=== PATIENT | female | born 1985 | race Caucasian/White ===

== ENCOUNTER 2017-05-21 07:53 | Emergency (ER) | payer OTHER ==
[~2017-05-21] VITALS: Ht 154.9 cm; Wt 70.3 kg
[~2017-05-21 07:53] MED LIST: CYMBALTA30 MG; IBUPROFEN; METFORMIN HCL500 MG PO; PANTOPRAZOLE SO40 MG PO; PROZAC
[2017-05-21 09:31] LABS: BILIRUBIN,URINE NEGATIVE (NEGATIVE); CLARITY,URINE CLOUDY (CLEAR); COLOR,URINE YELLOW (YELLOW); KETONES,URINE NEGATIVE (NEGATIVE); LEUKOCYTE ESTERASE ,URINE TRACE (NEGATIVE); NITRITE,URINE NEGATIVE (NEGATIVE); PROTEIN,URINE DIPSTICK NEGATIVE (NEGATIVE); URINE UROBILINOGEN 0.2 mg/dL (0.2 - 1)
[2017-05-21 09:35] LABS: PREGNANCY TEST, URINE NEGATIVE (NEGATIVE)
[2017-05-21 09:59] LABS: BACTERIA,URINE MANY /HPF; EPITHELIAL CELLS,URINE MODERATE /LPF
[2017-05-21] MEDS ORDERED: SEROQUEL25 MG PO (11:27)
[2017-05-21] MEDS ORDERED: OXYCODONE HCL20 M1 PO (11:27)
--- NOTE | 2017-05-21 12:02 | Diagnostic Imaging Report ---
PROCEDURE: CT ABDOMEN AND PELVIS WITHOUT CONTRAST COMPARISON:None. INDICATIONS:Bilateral flank pain. TECHNIQUE: Stone protocol Volumetric CT abdomen and pelvis. No intravenous or enteric contrast. Multiplanar reformatted images. DLP: 308.59 FINDINGS: Clear lung bases. No pleural effusions. Normal heart size. Liver: Normal Gallbladder: Normal. No bile duct dilation. Pancreas: Normal Spleen: Normal Adrenal glands: Normal Urinary bladder: Normal Uterus and adnexa: 5.2 cm simple right adnexal cyst, almost certainly benign in a patient of this age. Bilateral tubal ligation. Right kidney: 1 mm nonobstructing right inferior pole stone (image 66, series 401). Otherwise, normal bilaterally. Normal ureters. Bowel: Normal caliber. Moderate-sized sliding-type hiatal hernia. Inconspicuous appendix. Peritoneum: Normal Vasculature: Normal caliber. Lymph nodes: Normal Skeleton: Normal Soft tissues: Rectus abdominis diastases without hernia. Otherwise, normal CONCLUSION: 1. Punctate nonobstructive right nephrolithiasis. Otherwise, no conspicuous etiology for bilateral flank pain or other acute abnormality. 2. 5 cm right adnexal cyst which is almost certainly benign. One-year followup pelvic ultrasound is recommended per ACR guidelines. 3. Moderate sized hiatal hernia. Dictated by: Ganesh Ragsdale M.D. on 05/21/2017 at 12:10 Electronically approved by: Ganesh Ragsdale M.D. on 05/21/2017 at 12:10
[2017-05-21] MEDS ORDERED: KETOROLAC TROMETHAMINE 60 MG/2 ML VIAL IM ONE (13:15)
== END 2017-05-21 14:10 | disposition home or self-care (01) ==
LOC: ER 07:53
DX: R10.32 Left lower quadrant pain (principal); N30.91 Cystitis, unspecified with hematuria; N83.9 Noninflammatory disorder of ovary, fallopian tube and broad ligament, unspecified
CPT/HCPCS: 74176; 81001; 81025; 87086; 87186; 99283; J1885

== ENCOUNTER 2017-06-26 09:38 | Emergency (ER) | payer OTHER ==
[~2017-06-26] VITALS: Ht 154.9 cm; Wt 70.3 kg
[~2017-06-26 09:38] MED LIST changes: +OXYCODONE HCL20 M1 PO; +SEROQUEL25 MG PO
[2017-06-26 10:51] LABS: BILIRUBIN,URINE NEGATIVE (NEGATIVE); CLARITY,URINE CLEAR (CLEAR); COLOR,URINE YELLOW (YELLOW); KETONES,URINE NEGATIVE (NEGATIVE); LEUKOCYTE ESTERASE ,URINE NEGATIVE (NEGATIVE); NITRITE,URINE NEGATIVE (NEGATIVE); PROTEIN,URINE DIPSTICK NEGATIVE (NEGATIVE); URINE UROBILINOGEN 0.2 mg/dL (0.2 - 1)
[2017-06-26 10:52] LABS: PREGNANCY TEST, URINE NEGATIVE (NEGATIVE)
[2017-06-26 11:00] LABS: EPITHELIAL CELLS,URINE FEW /LPF; RBC,URINE 0-5 /HPF (0-5)
[2017-06-26 11:12] LABS: AMPHETAMINES SCREEN,URINE NEGATIVE (NEGATIVE); PHENCYCLIDINE SCREEN,URINE NEGATIVE (NEGATIVE)
[2017-06-26 11:13] LABS: BENZODIAZEPINES SCREEN,URINE NEGATIVE (NEGATIVE)
[2017-06-26 12:02] LABS: BASOPHILS % 0.6 % (0.0-1.0); EOSINOPHILS # (AUTO) 0.1 (0.0-0.4); EOSINOPHILS % 1.6 % (0.0-6.0); HEMATOCRIT 38.6 % (34.2-44.1); HEMOGLOBIN 12.5 g/dL (12.0-16.0); LYMPHOCYTES # (AUTO) 2.7 (1.0-3.2); LYMPHOCYTES % 37.8 % (18.0-39.1); MEAN CORPUSCULAR HEMOGLOBIN 28.3 pg (28-32); MEAN CORPUSCULAR HGB CONC 32.4 g/dL (31-35); MEAN CORPUSCULAR VOLUME 87.5 fL (81-99); MONOCYTES # (AUTO) 0.5 (0.2-0.8); MONOCYTES % 6.8 % (4.4-11.3); NEUTROPHILS # (AUTO) 3.7 (2.1-6.9); NEUTROPHILS % 52.9 % (38.7-80.0); PLATELET COUNT 299 x10e3/uL (140-360); RED BLOOD COUNT 4.41 x10e6/uL (3.6-5.1); RED CELL DISTRIBUTION WIDTH 12.5 % (11.7-14.4)
[2017-06-26 12:19] LABS: ANION GAP 11.9 mmol/L (8-16); BLOOD UREA NITROGEN 11 mg/dL (7-26); BUN/CREATININE RATIO 14 (6-25); CALCIUM 9.1 mg/dL (8.4-10.2); CARBON DIOXIDE 27 mmol/L (22-29); CHLORIDE 109 mmol/L (98-107); CREATININE, SERUM 0.79 mg/dL (0.57-1.11); EST GLOMERULAR FILTRATION RATE > 60 ML/MIN (60-); GLUCOSE 115 mg/dL (74-118); POTASSIUM 3.9 mmol/L (3.5-5.1); SODIUM 144 mmol/L (136-145)
[2017-06-26] MEDS ORDERED: KETOROLAC TROMETHAMINE 60 MG/2 ML VIAL IM ONE (16:00)
[2017-06-26] MEDS ORDERED: KETOROLAC TROMETHAMINE 30 MG/ML VIAL IV ONE (16:30)
== END 2017-06-26 16:32 | disposition home or self-care (01) ==
LOC: ER 09:38
DX: R30.0 Dysuria (principal); M54.5 Low back pain; G93.5 Compression of brain; G95.0 Syringomyelia and syringobulbia; F32.9 Major depressive disorder, single episode, unspecified
CPT/HCPCS: 36415; 80048; 80307; 81001; 81025; 85025; 87086; 99283; J1885